=== PATIENT | female | born 1985 | race Asian ===

== ENCOUNTER 2018-06-23 12:32 | Day surgery (SDC) | payer OTHER ==
[~2018-06-23 12:32] MED LIST: Buffered Lidocaine 0.9% SYRIN* 5 ML/SYR SYRINGE INTRADERM ONE; Dexamethasone IV* 4 MG/ML 1 ML (4 MG) IV SLOW PU ONE; Famotidine IV* 10 MG/ML 2 ML (20 mg) IV ONE
[2018-06-23] MEDS ORDERED: oxyCODONE/Acetamin 5/325 MG* TAB PO PRN (13:20)
[2018-06-23] MEDS ORDERED: Naloxone* 0.4 MG/ML 1 ML VIAL IV PRN (13:20)
[2018-06-23] MEDS ORDERED: Ketorolac INJ* 30 MG/ML 1 ML VIAL IV PRN (13:20)
[2018-06-23] MEDS ORDERED: HYDROcodone/ACETAMIN 5-325 MG* 1 TAB PO PRN (13:20)
[2018-06-23] MEDS ORDERED: Dexamethasone IV* 4 MG/ML 1 ML (4 MG) ONE (13:20)
[2018-06-23] MEDS ORDERED: PROCHLORPERAZINE INJ 5 MG/ML 2 ML VIAL IV PRN (13:20)
[2018-06-23] MEDS ORDERED: Famotidine IV* 10 MG/ML 2 ML (20 mg) ONE (13:20)
[2018-06-23] MEDS ORDERED: fentaNYL* 50 MCG/ML 2 ML VIAL (100 MCG VIAL) IV PRN (13:20)
[2018-06-23 13:21] LABS: ABS Basophils 0 10^3/ul (0-0.2); ABS Eosinophils 0.1 10^3/ul (0-0.6); ABS Lymphocytes 1.3 10^3/ul (1.0-4.8); ABS Monocytes 0.3 10^3/ul (0-0.8); ABS Neutrophils 2.8 10^3/ul (1.5-7.7); ABS Nucleated RBC 0 10^3/ul; Eosinophil % 2.3 % (0-6); Hematocrit 38 % (35-47); Hemoglobin 12.9 g/dl (12.0-16.0); Lymphocyte % 29.5 % (25-47); Mean Corpuscular HGB Conc 34 g/dl (31-36); Mean Corpuscular Hemoglobin 30 pg (27-31); Mean Corpuscular Volume 89 fL (80-97); Mean Platelet Volume 8.1 um3 (7.4-10.4); Nucleated Red Blood Cells % 0.1; Platelet Count 206 10^3/ul (150-450); Red Blood Count 4.27 10^6/ul (4.00-5.40); Red Cell Distribution Width 13 % (10.5-15); White Blood Count 4.5 10^3/ul (3.5-10.8)
[2018-06-23] MEDS ORDERED: Midazolam* 1 MG/ML 5 ML VIAL (5 MG) ONE (13:36)
[2018-06-23] MEDS ORDERED: Chloroprocaine 2%* 20 ML VIAL ONE (13:37)
[2018-06-23] MEDS ORDERED: Propofol* 10 MG/ML 20 ML BTL IV PUSH ONE (14:05)
[2018-06-23] MEDS ORDERED: Lidocaine 2% PF * 5 ML VIAL ONE (14:05)
[2018-06-23] MEDS ORDERED: Misoprostol TAB* 200 MCG ONE (14:20)
[2018-06-23] MEDS ORDERED: DOXYcycline CAP(*) 100 MG PO SCH (15:00)
[2018-06-23 17:05] VITALS: BP 111/78
--- NOTE | 2018-06-24 03:02 | OP ---
OPERATIVE REPORT: DATE OF OPERATION: 06/23/18 DATE OF : 83 SURGEON: Maisha Murdock MD ANESTHESIA: Spinal with sedation. PRE-OP DIAGNOSIS: Missed . Sac measuring 8 weeks and 6/7 days, by dates 21 weeks. POST-OP DIAGNOSIS: Missed . Sac measuring 8 weeks and 6/7 days, by dates 21 weeks. OPERATIVE PROCEDURE: Dilation, evacuation, and curettage. ESTIMATED BLOOD LOSS: Less than 100 cc. FLUIDS: 900 cc of crystalloids. URINE OUTPUT: 250 cc of clear yellow urine. FINDINGS: Specimen consistent with products of conception to pathology to rule out a molar component . COMPLICATIONS: None apparent. DISPOSITION: Stable to recovery room. DESCRIPTION OF PROCEDURE: The patient was placed in dorsal lithotomy position. After undergoing spin al anesthesia, legs were placed in candy cane stirrups. The perineum and vagina were prepped and jenna ped in a sterile standard fashion. The patient was identified with the universal protocol. Self-cat h was used to drain 250 cc of clear clear yellow urine. Self-cath was removed. A sterile speculum w as inserted and the cervix was visualized grasped on the anterior lip with single tooth tenaculum and dilated to 10 Hegar dilator. A 10 mm suction curette was then placed for evacuation of the intraute rine contents. Sharp curettage was then performed confirming removal of intrauterine contents. The single tooth tenaculum was removed. Sterile speculum was removed. 600 mcg of Cytotec was placed int ravaginally. Minimal bleeding was noted. The patient was taken out of candy cane stirrups, placed i n a dorsal lithotomy position and then transferred to recovery room in a stable condition. [id number] #: [id number]
== END 2018-06-23 17:11 | disposition home or self-care (01) ==
LOC: OR 12:32
PROVIDERS: ATTEND Obstetrics & Gynecology
DX: O02.1 Missed abortion (principal); F41.8 Other specified anxiety disorders
CPT/HCPCS: 36415; 85025; 86850; 86900; 86901; 88305; A9270-GY; J1100; J2250; J2400; J2704